=== PATIENT | female | born 1960 | race Caucasian/White ===

== ENCOUNTER → 2023-07-29 14:16 | Outpatient (REF) | payer OTHER, SELFPAY | LOC: HWRAD 14:16 | PROVIDERS: ATTENDING PHYSICIAN Family Medicine | DX: M54.2 Cervicalgia (principal); G44.209 Tension-type headache, unspecified, not intractable | CPT/HCPCS: 72040 ==

== ENCOUNTER → 2023-08-17 10:20 | Outpatient (REF) | payer OTHER, SELFPAY | LOC: HWWDC 10:20 | PROVIDERS: ATTENDING PHYSICIAN Family Medicine | DX: Z12.31 Encounter for screening mammogram for malignant neoplasm of breast (principal) | CPT/HCPCS: 77063; 77067 ==

== ENCOUNTER → 2023-09-11 06:27 | Day surgery (SDC) | payer OTHER, SELFPAY | LOC: GI 06:27 | PROVIDERS: ATTENDING PHYSICIAN Internal Medicine Gastroenterology; FAMILY PHYSICIAN Family Medicine | DX: Z12.11 Encounter for screening for malignant neoplasm of colon (principal); K64.8 Other hemorrhoids; Q43.8 Other specified congenital malformations of intestine | CPT/HCPCS: G0121 ==

== ENCOUNTER → 2024-05-03 10:47 | Outpatient (REF) | payer OTHER, SELFPAY | LOC: PAVMRI 10:47 | PROVIDERS: ATTENDING PHYSICIAN Family Medicine | DX: G44.209 Tension-type headache, unspecified, not intractable (principal); Z82.49 Family history of ischemic heart disease and other diseases of the circulatory system | CPT/HCPCS: 70544; 70553; A9575 ==

== ENCOUNTER → 2024-05-27 10:13 | Outpatient (REF) | payer OTHER, SELFPAY ==
--- NOTE | 2024-05-27 11:38 | PTCARENOTE ---
Pt here for Echo Bubble Study, pt tolerated procedure well. Procedure completed per protocol with aseptic technique. Right antecubital median IV site utilized 22 G PC, inserted first attempt, rapid blood return. [facility] at 1140, site clear,
no redness, no edema. Pressure held, no bleeding. 2x2 applied and taped. Pt offers no complaints.
== END ==
LOC: RCS 10:13
PROVIDERS: ATTENDING PHYSICIAN Internal Medicine Cardiovascular Disease; FAMILY PHYSICIAN Family Medicine
DX: I63.9 Cerebral infarction, unspecified (principal); I07.1 Rheumatic tricuspid insufficiency; I34.0 Nonrheumatic mitral (valve) insufficiency; I10 Essential (primary) hypertension; E78.00 Pure hypercholesterolemia, unspecified
CPT/HCPCS: 93306

== ENCOUNTER 2024-06-18 11:33 | Emergency (ER) | payer OTHER, SELFPAY ==
[2024-06-18 11:42] VITALS: BP 131/69
[2024-06-18 12:18] VITALS: BP 119/66
[2024-06-18 12:29] LABS: % Basophils 0.6 % (0-2); % Eosinophils 1.6 % (0-6); % Immature Granulocytes 0.2 % (0-0.5); % Lymphocytes 34.9 % (20.5-51.1); % Monocytes 7.1 % (1.7-9.3); % Neutrophils 55.6 % (42.2-75.2); Absolute Eosinophils 0.1 10^3/uL (0-0.7); Absolute Lymphocytes 1.7 10^3/uL (1.2-3.4); Absolute Monocytes 0.4 10^3/uL (0.1-0.6); Absolute Neutrophils 2.7 10^3/uL (1.4-6.5); Hematocrit 37.6 % (37.0-47.0); Hemoglobin 13.2 g/dL (12.0-16.0); Mean Corp Hgb Conc. 35.1 g/dL (33.0-37.0); Mean Corpuscular Hgb 33.6 pg (27.0-31.0); Mean Corpuscular Volume 95.7 fL (81.0-99.0); Mean Platelet Volume 9.7 fL (7.4-10.4); Nucleated Red Blood Cells % 0 %; Platelet Count 247 10^3/uL (130-400); Red Blood Cell Count 3.93 10^6/uL (4.20-5.40); Red Cell Dist. Width 11.9 % (11.5-14.5); White Blood Cell Count 4.9 10^3/uL (4.8-10.8)
[2024-06-18 12:38] LABS: Urine Albumin Negative (Neg - Trace); Urine Bilirubin Negative (Negative); Urine Character Clear (Clear); Urine Color Yellow; Urine Glucose Negative (Negative); Urine Ketone Negative (Negative); Urine Leukocyte 1+ (Negative); Urine Nitrite Negative (Negative); Urine Occult Blood Negative (Negative); Urine Urobilinogen Negative (Neg - 1+)
[2024-06-18 12:45] LABS: ALT (SGPT) 23 U/L (0-35); AST (SGOT) 28 U/L (14-36); Albumin 4.5 g/dl (3.5-5.0); Alkaline Phosphatase 80 U/L (38-126); Blood Urea Nitrogen 14 mg/dl (7-17); Calcium 9.4 mg/dl (8.4-10.2); Carbon Dioxide 30 mmol/L (22-30); Chloride 101 mmol/L (98-107); Glucose 84 mg/dl (70-99); Potassium 4.5 mmol/L (3.5-5.1); Sodium 139 mmol/L (135-145); Total Bilirubin 0.3 mg/dl (0.2-1.3); eGFR > 60.00
[2024-06-18 13:00] VITALS: BP 124/63
--- NOTE | 2024-06-18 13:02 | ED.CVA ---
History of Present Illness
General
Chief Complaint: CVA/TIA Symptoms
Source: patient
Exam Limitations: none
Time Seen by Provider: 06/18/24 12:44
Onset of Stroke Symptoms
Onset of symptoms known: Yes
Date of onset of symptoms: 06/18/24
History of Present Illness
History of Present Illness:
See MDM
Past History
Past History
ED Past Medical History: CVA and Other (Rheumatoid arthritis)
Social History
Tobacco: Non-smoker
Phy Exam
Physical Exam
Physical Exam:
See MDM
Scores
NIH Stroke Score
Level of Consciousness: 0 - Alert
LOC Questions: 0-Answers both correctly
LOC Commands: 0-Performs both correctly
Best Horizontal Gaze: 0-Normal
Visual Pillai: 0=Normal, no visual loss
Facial Palsy: 0=Normal, symmetrical
Motor - Right Arm: 0=No drift 10 seconds
Motor - Left Arm: 0=No drift 10 seconds
Motor - Right Le-No drift 5 seconds
Motor - Left Le-No drift 5 seconds
Limb Ataxia: 0-Absent
Sensation: 0-Normal
Best Language: 0-No aphasia
Dysarthria: 0-Normal
Extinction and Inattention: 0-No abnormality
Total Score:: 0
Course
Orders/Labs/Results
Orders:
Orders
06/18/24 11:36
Bedside Glucose- Treatment ONCE
06/18/24 11:[address] [CT Head W/o Iv Contrast] Urgent
Comment:
Reason For Exam: previous CVA, facial numbness since 08
06/18/24 11:46
Electrocardiogram (*1) Urgent
Reason for Study: TIA/Stroke
EKG- Treatment ONCE
06/18/24 12:08
C-Reactive Protein Urgent
Comment: ADD ON
Cardiovascular Evaluation Urgent
Comment: ADDON
Complete Blood Count/With Diff Urgent
Comprehensive Metabolic Panel Urgent
Erythrocyte Sed Rate Urgent
Comment: ADD ON
Ferritin Urgent
Folate Urgent
TSH Reflex To Free T4 Urgent
Comment: FERR
Urinalysis Reflex To Culture Urgent
Date Specimen was Collected: 06/18/24
Time Specimen was Collected: 12:04
Urine Microscopic Reflex Cult Urgent
Vitamin B12 Urgent
Comment: TSH REFLEX,FERRITIN,FOLATE,B12 ADDED ON BY FLOOR 2:10PM 06-18-24
Vitamin D, 25-Oh Urgent
Urine Culture Urgent
CUATE Source: U
Specimen Description:
Date Specimen was Collected: 06/18/24
Time Specimen was Collected: 12:04
06/18/24 12:57
Add On- LAB Urgent
Tests Added?: ESR, CRp
06/18/24 13:00
NEUROLOGY CONSULT Urgent
Consulting Provider: Conor Hi
Was physician already notified: Yes
06/18/24 13:17
MR Brain W/o & With Contrast Routine
Comment:
Reason For Exam: Stroke or demyelination
Recent pill cam endoscopy?: No
Lorazepam [Ativan] 1 mg PO ONCE ONE
06/18/24 14:11
Add On- LAB Routine
Comments:: Please add to today's labs or draw as routine
Tests Added?: TSH reflex, Ferritin, Folate, Vit. B12
06/18/24 14:32
Add On- LAB Routine
Comments:: Please add to today's labs or draw as routine
Tests Added?: Vitamin D 25
Abnormal Lab Results
06/18/24
12:08
RBC 3.93 L 10^6/uL
(4.20-5.40)
MCH 33.6 H pg
(27.0-31.0)
Leukocyte Esterase Rfl 1+ A
(Negative)
Urine Bacteria (Reflex) Few A
(Negative)
06/18/24 12:08
06/18/24 12:08
Vital Signs
Initial and Last Documented VS:
Initial Vital Signs
Temp Pulse Resp BP Pulse Ox
97.8 F 63 16 131/69 98
06/18/24 11:42 06/18/24 11:42 06/18/24 11:42 06/18/24 11:42 06/18/24 11:42
Last Documented Vital Signs
Temp Pulse Resp BP Pulse Ox
97.8 F 64 12 124/63 98
06/18/24 11:42 06/18/24 13:15 06/18/24 13:15 06/18/24 13:00 06/18/24 13:15
MDM/Problems Addressed
Differential Diagnosis Includes:
HPI and MDM Narrative:
63-year-old female presenting with strokelike symptoms. Approximately 4 hours ago, she noted mild tenderness to her right forehead. This is associated with numbness going down her right cheek. She then developed blurry vision. Currently, patient
symptom-free. She was unsure if this is another stroke. She has been having increasing headaches over the past few months. Outpatient MRI in April showed concern for subacute infarct. She was placed on Plavix by her PCP and has since followed
up with neurology. Neurology had patient get carotid ultrasound and echo. Patient states everything is coming back normal and neurology will follow her again in July.
On exam, she is well-appearing nontoxic. She does have mild tenderness to the right samaritan. She has no visual complaints at the moment. Will add on ESR and CRP and have neurology evaluate
Physical exam
General: Well appearing and non-toxic
HEENT: protecting airway. Pupils equal reactive. EOMI
Neck: appears supple
CV: No evidence of cyanosis
Resp: No accessory muscle use
Abd: Non-distended
Extremities: No deformities
Neuro: alert. No focal deficits
Psych: Normal affect
Skin: Intact
Problems Addressed including Acute and Chronic Conditions affecting care:
1. Headache and strokelike symptoms
Acuity: acute
Prognosis: stable
Details: CT head negative. Will add ESR and CRP to assess for possible giant cell arteritis
Updates
Neurology evaluated patient and evaluated the MRI. Neurology indicating that patient likely has complex migraine and okay to go home. Neurology indicated they will prescribe headache medicine and follow
Differential Diagnosis (but not limited to): Stroke, trigeminal neuralgia, giant cell arteritis
Testing considered: CTA
Drug therapy (if applicable): OTC meds, please see d/c instruction regarding Rx drugs
Amount and/or Complexity of Data Reviewed
Clinical info obtained from: Patient
External data reviewed: N/A
Labs I independently reviewed (but not limited to): ESR and CRP negative
Radiology: The CT scan was personally and independently reviewed. In addition, official CT report reviewed.
Pulse Ox: not hypoxic
EKG independently reviewed: Sinus rhythm, normal axis, no STEMI
Green Inspector: Sinus rhythm, normal axis, no STEMI
Critical Care: N/A
Risk of Complication:
Social Determinants of health: Good social support
Discussed with other providers: Neurology
Escalation of Care includes Admit/Obs: After being observed in the Emergency Department, pt stable for discharge.
Occasional wrong word or 'sound a like' substitutions may have occurred due to the inherent limitations of voice recognition software. Read the chart carefully and recognize, using context, where substitutions have occurred.
*Critical Care Note
Total Time (30-74mins, 75-104mins- exclusive of procedures): Not Applicable
ED Attending Note
-
Portions of this chart may have been created with voice recognition software.� Occasional wrong word or��sound alike� substitutions may have occurred due to the inherent limitations of voice recognition software.
Discharge Plan
Departure
Patient Disposition: Home (Routine Discharge)
Date of Disposition: 06/18/24
Time of Disposition: 16:06
Patient with high blood pressure during this ER visit?: No
Discharge Problem:
Complicated migraine
Instructions: Migraine in adults
Prescriptions:
No Action
citalopram 10 MG tablet
10 mg PO DAILY
hydroxychloroquine 200 MG tablet
150 mg PO DAILY
[place]-6
3,000 mg PO DAILY
Referrals:
Conor Hi MD [Active] -
Krystin Mitchell MD [Family Provider] -
Activity Restrictions/Additional Instructions:
Please return for any worsening symptoms.
You may return at any time if you have further concerns.
Please follow up with your doctor at the first available appointment, preferably this week.
Please follow-up with the neurologist.
Thank you for choosing [facility].
Interventions
Interventions:
*Risk Screen - Suicide Last Done: 06/18/24 11:42
*Neglect/Abuse Screening Last Done: 06/18/24 11:42
ED- Neurological Assessment Last Done: 06/18/24 13:17
Discharge Date and Time
Print Language: KITTITIAN
--- NOTE | 2024-06-18 13:07 | CON.NEURO ---
Neuro Assessment/Plan
Assessment
MRI of brain 04/2024: There is a small focus of diffusion hyperintense signal with associated T2/FLAIR hyperintense signal. There is no correlative low ADC signal or enhancement. Findings are favored to represent subacute infarction.
There are additional scattered T2/flair hyperintensities within the periventricular and subcortical white matter which are nonspecific
MRA head and neck normal 04/2024
Acute onset of right facial sensation change and blurred right eye vision with chronic tingling in hands, chronic headaches, and prior diagnosis of rheumatoid arthritis (RA) and above listing subacute ischemic lacunar stroke
DDX repeated ischemic stroke, demyelinative injury, optic neuritis. To all of those patient may be predisposed by RA leading to BUTT MA[employer]ER-related autoimmune disease.
Alternatively, patient may be experiencing migraine with aura
Plan
check MRI of brain with and without
check blood work for additional metabolic disorders or Giant Cell Arteritis
continue Clopidogrel 75 mg to prevent against future stroke until prescription completed then start aspirin 81 daily as previously planned
start med to prevent routine headaches, Atogepant, as patient has failed numerous medications for headache prevention
continue Atorvastatin 40 mg daily
OK provide routine medications for headache control in ED including metoclopramide, diphenhydramine
Will follow as outpatient
Consultation
Order
Date of Consultation: 06/18/24
Requesting Provider: Emergency department provider
Reason for Consult: Intractable headache
Subjective/Objective
Subjective Data
Date of Service: June 18, 2024
Right-handed
Patient arrived at this hospital's emergency department due to sudden onset of R facial numbness and R eye blurred vision beginning approximately 4 hours prior to presenting to this hospital's emergency department.
Patient admits that jaw pressure on the right began approximately 24 hours prior to presentation, prompting her to contact her dentist for evaluation. This then blossomed into the entire right face and right eye changes listed above.
Patient began experiencing numbness and tingling in her hands bilaterally for the last several months associated with approximately 10 months ago (August 2023) bitemporal head pain. Because of sudden worsening in April 2024, MRI of the brain was
performed which demonstrated a high right parietal subacute ischemic lesion. The patient was then evaluated by a [place] neurologist who suggested that the patient initiate and maintain the use of clopidogrel downgrading to aspirin after a 90-day
supply was completed. Patient has not yet reached the time of change from clopidogrel to aspirin.
The patient's head discomfort is described as constant although it has resolved in the left. She is not experienced with her headaches any difficulty with photophobia phonophobia nausea or emesis. The patient also suggests that based on her prior
stroke, she underwent OCT and visual field evaluations by her fuels sales representative which were both normal. Due to a sense of dizziness the patient was evaluated by physical therapy as well as undergoing an echocardiogram and carotid ultrasound which
were described as normal.
Patient previously has utilized bupropion, escitalopram, amlodipine, nebivolol. As treatment for rheumatoid arthritis, patient has utilized hydroxychloroquine.
Objective Data
Vital Signs
Temp Pulse Resp BP Pulse Ox
36.6 C 63 16 131/69 98
06/18/24 11:42 06/18/24 11:42 06/18/24 11:42 06/18/24 11:42 06/18/24 11:42
Lab Results
06/18/24 12:08
06/18/24 12:08
Sodium 139 mmol/L (135-145) 06/18/24 12:08
Potassium 4.5 mmol/L (3.5-5.1) 06/18/24 12:08
BUN 14 mg/dl (7-17) 06/18/24 12:08
Glucose 84 mg/dl (70-99) 06/18/24 12:08
Calcium 9.4 mg/dl (8.4-10.2) 06/18/24 12:08
Patient Allergies
codeine Allergy (Mild, Verified 06/18/24 11:45)
Hives
Review of Systems
-
History Source: Patient
All other systems: Reviewed and negative
EENT: Negative Swallowing Difficulty
Respiratory: Negative Trouble Breathing
Cardiac: Negative Chest Pain
Abdomen/GI: Negative Incontinence of Stool
Genitourinary: Incontinence (minimally)
Musculoskeletal: Neck Pain; Negative Back Pain
Neuro: Headache; Negative Dizzy
Physical Exam
-
General: No Apparent Distress and Appears Stated Age
Eyes: OU Absent Papilledema, Round OU, [place] Conjunctivae and No Ptosis
HEENT: Anicteric and Moist Mucous Membranes
Neck: Full Range of Motion
Respiratory: No Dyspnea
Cardiac: No JVD
GI: Non-distended
Skin: Unremarkable
Extremities: No Clubbing, No Cyanosis and No Edema
Psych: Intact Judgement/Insight
Extended Neurological Exam
Mood & Affect: Mood Unremarkable and Affect Unremarkable
Attention Span & Concentration: Awake, Alert, Interactive and No Difficulty with 2 Step Request
Memory: Unremarkable
Tremor: Hand Tremor Absent and Head Tremor Absent
Speech: Quality Unremarkable and Quantity Unremarkable
Cranial Nerve II: Left Eye: Pupillary Reactivity Unremarkable, Pupillary Size Unremarkable and Visual Pillai Intact
Cranial Nerve II: Right Eye: Pupillary Reactivity Unremarkable, Pupillary Size Unremarkable and Visual Pillai Intact
Cranial Nerves III, IV, : Extraocular Movement: Extraocular Movement Full in all Directions
Cranial Nerve V: Facial Sensation: Facial Sensation Unremarkable to Cold
Cranial Nerve VII: Facial Symmetry: Normal Facial Symmetry
Cranial Nerve VIII: Hearing: Unremarkable Hearing to Normal Conversational Volume
Cranial Nerves IX, X: Palate Movement: Palate Elevation Symmetric
Cranial Nerve XI: Shoulder Shrug: Unremarkable
Cranial Nerve XII: Tongue Protusion: Midline
Muscle Strength, Overall: Full Throughout
Muscle Bulk & Tone: Bulk Unremarkable and Tone Unremarkable
Pronator Drift: No Drift in Upper Extremities
Deep Tendon Reflexes: Unremarkable Throughout
Cold Sensation: Testing in Upper Extremities and Unremarkable
Touch Sensation: Unremarkable
Coordination: [id number]-[id number] Testing Unremarkable
Babinski Sign: Absent Bilaterally
Gait & Station: Up from Seated Without Problem
Data Reviewed
-
MRI Head: Ordered, Pending, Report Reviewed and Image Reviewed
Labs: Ordered, Pending and Report Reviewed
Lipid Profile: Ordered
Reviewed with: Physician and Patient
Old Records: Summarized
Medications
-
Home Medications
�Medication �Instructions �Recorded
[place]-6 3,000 mg PO DAILY 11/05/17
citalopram 10 mg tablet 10 mg PO DAILY 11/05/17
hydroxychloroquine 200 mg tablet 150 mg PO DAILY 11/05/17
Past History
Past History
ED Past Medical History: CVA (April 2024), HTN and Other (Rheumatoid arthritis)
ED Past Surgical History: Other (Cervical epidural steroid injection 2023, inguinal herniorrhaphy 1999)
Social History
Tobacco: Non-smoker
Personal:
Living: with family
Employment: Employed
Family History
Family History: Other (Reviewed and noncontributory)
[2024-06-18 13:16] VITALS: BMI 23.3
[2024-06-18 13:23] LABS: Urine Bacteria Few (Negative); Urine Red Blood Cell 0-2 /HPF (0-2)
[2024-06-18 13:38] LABS: C-Reactive Protein < 5.00 mg/L (0.0-10.00)
[2024-06-18 15:07] LABS: Vitamin D, 25-OH*** 37.2 ng/mL (30-80)
[2024-06-18 15:12] LABS: Erythrocyte Sed Rate 3 mm/hour (0-20)
[2024-06-18 15:20] LABS: TSH Reflex To Free T4 0.51 uIU/ml (0.47-4.68)
[2024-06-18 15:22] LABS: HDL Cholesterol 90 mg/dl; LDL Cholesterol, Calculated 65 mg/dl; Total Cholesterol 166 mg/dl (50-199); Triglyceride 56 mg/dl (10-149); Very Low Density Lipoprotein 11 mg/dl (0-30)
[2024-06-18 15:56] LABS: Folate 10.2 ng/ml (2.76-20); Vitamin B12 910 pg/ml (239-931)
== END 2024-06-18 16:16 | disposition home or self-care (01) ==
LOC: EMR 11:33
PROVIDERS: CONSULT PHYSICIAN Psychiatry & Neurology Neurology; EMERGENCY PHYSICIAN Student in an Organized Health Care Education/Training Program; FAMILY PHYSICIAN Family Medicine
DX: G43.109 Migraine with aura, not intractable, without status migrainosus (principal); M06.9 Rheumatoid arthritis, unspecified; Z86.73 Personal history of transient ischemic attack (TIA), and cerebral infarction without residual deficits; I10 Essential (primary) hypertension; Z79.899 Other long term (current) drug therapy
CPT/HCPCS: 99284; 70450; 70553; 80053; 80061; 81003; 81015; 82306; 82607; 82728; 82746; 84443; 85025; 85652; 86140; 87086; 93005; A9575

== ENCOUNTER → 2024-09-14 12:33 | Outpatient (REF) | payer OTHER, SELFPAY | LOC: HWWDC 12:33 | PROVIDERS: ATTENDING PHYSICIAN Family Medicine | DX: Z78.0 Asymptomatic menopausal state (principal); Z12.31 Encounter for screening mammogram for malignant neoplasm of breast | CPT/HCPCS: 77063; 77067; 77080 ==

== ENCOUNTER → 2025-04-11 12:00 | Outpatient (REF) | payer OTHER, SELFPAY | LOC: DHSLP 12:00 | PROVIDERS: ATTENDING PHYSICIAN Psychiatry & Neurology Neurology; FAMILY PHYSICIAN Family Medicine | DX: G47.30 Sleep apnea, unspecified (principal); G43.109 Migraine with aura, not intractable, without status migrainosus; R06.83 Snoring; G47.8 Other sleep disorders; Z86.73 Personal history of transient ischemic attack (TIA), and cerebral infarction without residual deficits | CPT/HCPCS: 95806 ==